=== PATIENT | male | born 1990 | race Caucasian/White ===

== ENCOUNTER → 2022-12-27 09:20 | Outpatient (CLI) | payer OTHER, SELFPAY | PROVIDERS: PCP Physician Assistant; Visit Provider Physician Assistant | DX: Z76.89 Persons encountering health services in other specified circumstances (principal) ==

== ENCOUNTER → 2023-01-08 11:52 | Outpatient (CLI) | payer OTHER, SELFPAY ==
[2022-12-27 15:11] LABS: Amphetamine/Metha Screen,Urine Negative ng/ml (<1000)
[2022-12-27 15:12] LABS: Barbiturates Screen,Urine Negative ng/ml (<200)
[2022-12-27 15:13] LABS: Benzodiazepines Screen,Urine Negative ng/ml (<200); Cannabinoid Screen,Urine Positive ng/ml (<50)
[2022-12-27 15:23] LABS: Cocaine Screen,Urine Negative ng/ml (<300)
[2022-12-27 15:24] LABS: Methadone Screen,Urine Negative ng/ml (<300)
[2022-12-27 15:25] LABS: Opiate Screen,Urine Negative ng/ml (<300); Phencyclidine Screen,Urine Negative ng/ml (<25)
== END ==
LOC: LAB.DROPOF 11:53
PROVIDERS: PCP Physician Assistant; Visit Provider Physician Assistant
DX: F90.9 Attention-deficit hyperactivity disorder, unspecified type (principal); R45.4 Irritability and anger; Z76.89 Persons encountering health services in other specified circumstances
CPT/HCPCS: 80305

== ENCOUNTER → 2023-08-19 15:25 | Outpatient (CLI) | payer SELFPAY ==
[2023-08-19 17:07] LABS: Barbiturates Screen,Urine Negative ng/ml (<200)
[2023-08-19 17:08] LABS: Benzodiazepines Screen,Urine Negative ng/ml (<200)
[2023-08-19 17:09] LABS: Cannabinoid Screen,Urine Positive ng/ml (<50); Cocaine Screen,Urine Negative ng/ml (<300)
[2023-08-19 17:10] LABS: Methadone Screen,Urine Negative ng/ml (<300); Opiate Screen,Urine Negative ng/ml (<300)
[2023-08-19 17:11] LABS: Phencyclidine Screen,Urine Negative ng/ml (<25)
[2023-08-19 17:21] LABS: Amphetamine/Metha Screen,Urine Positive ng/ml (<1000)
== END ==
PROVIDERS: PCP Physician Assistant; Visit Provider Physician Assistant
DX: F90.9 Attention-deficit hyperactivity disorder, unspecified type (principal); Z79.899 Other long term (current) drug therapy
CPT/HCPCS: 80305

== ENCOUNTER 2025-03-31 13:04 | Emergency (ER) | payer OTHER, SELFPAY ==
[2025-03-31 13:10] VITALS: BP 141/95; PULSE 119; RESP 20; TEMP 37.2; O2SAT 99; BMI 23.6
--- NOTE | 2025-03-31 13:10 | ED_ITS ---
<Statement entered by Zuly Solano DO - 03/31/25 17:01> I was consulted by the JARRETT, and we discussed the complexity of problems being addressed. I approve the treatment and management plan for this patient's care in the emergency department, thus performing a substantial portion of the medical decision making. Zuly Solano DO Discharge Plan Disposition Patient Disposition: Home, Self-Care Condition: Good Prescriptions Prescriptions: No Action citalopram 20 mg tablet 20 mg PO DAILY 90 Days Qty: 90 0RF methylphenidate HCl 20 mg tablet 20 mg PO BID Qty: 60 0RF Rx Instructions: Take at least 4-6 hours apart but also 4-6 hours before bedtime Referrals Follow up/Referrals: Provider,Referral, MD [Primary Care Provider, Medical] - See instructions Activity Restrictions/Add. Instructions Additional Instructions/Restrictions: Please follow-up with your primary care doctor or orthopedic doctor in the upcoming days/weeks, please utilize ibuprofen and Tylenol as needed for symptomatic relief, please return to the emergency department with any worsening signs or symptoms, would benefit from MRI of your shoulder to assess for any rotator cuff issues. 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 Patient denies any fever chills chest pain shortness of breath nausea vomiting constipation diarrhea, no neck pain, no midthoracic back pain, no lower back pain, no urinary bladder or bowel dysfunction, no upper or lower extremity weakness or numbness or tingling, no radicular type symptomatology, no diarrhea no constipation. 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 Initial triage vitals are grossly unremarkable. Onset (ago): week(s) Related Data Previous Rx's ?Medication ?Instructions ?Recorded citalopram 20 mg tablet 20 mg PO DAILY 90 days #90 t abs 12/27/22 methylphenidate HCl 20 mg tablet 20 mg PO BID #60 tabs 08/21/23 Allergies Allergy/AdvReac Type Severity Reaction Status Date / Time No Known Allergies Allergy Verified 08/19/23 10:03 [facility] Disclaimer: The information contained in this section may have been updated after the patient was seen, as this information can be updated by other users. Medical History Anxiety Difficulty controlling anger Excessive anger Social History Smoking Status: Current every day smoker tobacco type: cigarettes alcohol intake: current alcohol intake frequency: holidays/special occasions only substance use type: marijuana current occupational status: employed Travel in the last 8 weeks?: None Have you lived/traveled outside [place] in past 30 days?: No Contact w/someone who lives/traveled outside [place] past 30 days?: No Exposure to someone with infectious disease in past 14 days?: No Do you have a fever (greater than 100.4 F or 38 C)?: No Have you tested positive for COVID-19?: No Exposed to someone with COVID-19 in past 14 days?: No Do you have a sore throat?: No Do you have a cough?: No Do you have any weakness?: No Do you have any diarrhea?: No Are you experiencing any unusual bleeding?: No Do you have any muscle aches/pain?: No Do you have any abdominal pain?: No Are you experiencing loss of taste or smell?: No Other Medical History Have you received the Pneumonia Vaccine: No ROS Obtained: Yes All systems reviewed & no additional complaints except as documented Physical Exam General General appearance: alert and in no apparent distress Head Head exam: atraumatic and normocephalic Eye Eye exam: Present PERRL and EOMI ENT ENT exam: Present mucous membranes moist Neck Neck exam: Present normal inspection Chest Chest inspection: Present normal inspection and symmetric chest wall rise Respiratory Respiratory exam: Present normal lung sounds bilaterally; Absent respiratory distress Cardiovascular Cardiovascular exam: Present regular rate and normal rhythm Abdominal Exam Abdominal exam: Present soft; Absent tenderness Extremities Exam Extremities exam: Present normal inspection, tenderness and other (Patient is otherwise neurovasc intact, some pain limited range of motion in the shoulder joint, patient has difficulty with abduction abduction, internal and external rotation, and has a positive empty can sign.); Absent full ROM or joint swelling Neurological Exam Neurological exam: Present alert and oriented X3 Psychiatric Psychiatric exam: Present normal affect Skin Skin exam: Present warm and dry Medical Decision Making Medical Records Medical records reviewed: Yes I reviewed the patient's medical records. Screening: Per USPSTF and CDC recommendations, given the prevalence of disease in our [facility], it is our hospital?s policy to screen for HIV and viral Hepatitis for all patients aged 18 and over and those with ongoing risk factors. Omar Inquiry Pt receiving controlled substance: No Omar was queried for this patient: No Vital Signs: 03/31/25 13:10 Temperature 99.0 F Temperature Source Oral Pulse Rate [Left Radial] 119 H Respiratory Rate 20 Blood Pressure [Right Arm] 141/95 H Blood Pressure Mean [Right Arm] 110 02 Sat by Pulse Oximetry 99 Oxygen Delivery Method Room Air Lab Data Lab results reviewed: Yes I reviewed the patient's lab results. Orders (Tests/Meds): ED MEDICATIONS Discontinued Medications Generic Name Dose Route Start Last Admin Trade Name Hien PRN Reason Stop Dose Admin Acetaminophen 500 mg 03/31/25 13:19 03/31/25 13:27 Acetaminophen 500mg Tab PO 03/31/25 13:20 500 mg ONCE ONE Administration Ibuprofen 600 mg 03/31/25 13:18 03/31/25 13:27 Ibuprofen 600 Mg Tablet PO 03/31/25 13:19 600 mg ONCE ONE Administration ORDERS Category Date Time Status XR shoulder LT min 2V Stat Exams 03/31/25 13:18 Completed Medical Decision Narrative: 35-year-old male presents the emergency department with left shoulder pain, for 2 weeks, differential diagnosis include but not limited to, rotator cuff tendinopathy, anterior shoulder dislocation, shoulder fracture, acute shoulder impingement syndrome, bursitis, AC joint dysfunction among others. Obtain x-ray of the left shoulder, and give 500 mg p.o. Tylenol and 600 milligram p.o. ibuprofen for pain I reviewed the patient's left shoulder x-ray along with the corresponding radiological report, unremarkable exam. I recommend follow-up with orthopedic doctor, recommend rest ice ibuprofen Tylenol as needed for symptomatically, you would benefit from possible MRI of the shoulder to assess for any rotator cuff injury, patient voiced understanding and agreement with current treatment plan/discharge plan. Patient will follow- up with providers as directed, patient was given strict ED return precautions. Critical Care Critical Care Time Critical Care Time: No
--- NOTE | 2025-03-31 13:18 | XR_ITS ---
FINAL REPORT CLINICAL HISTORY: Left shoulder pain after injury 2 weeks ago, pt states he heard a pop in his shoulder during initial injury FINDINGS: Three views show no evidence of acute displaced fracture or dislocation of the visualized bony architecture. The joint spaces appear normal. IMPRESSION: Unremarkable exam. Reviewed, Interpreted and Dictated by Nick Stewart MD Transcribed by Vidhi Leigh Authenticated and . [facility]
[2025-03-31] MEDS: ACETAMINOPHEN 500MG TAB 500 MG PO (13:27)
[2025-03-31] MEDS: IBUPROFEN 600 MG TABLET PO (13:27)
[2025-03-31 14:26] VITALS: BP 140/78; PULSE 90; RESP 20; TEMP 36.8; O2SAT 98
== END 2025-03-31 14:28 | disposition home or self-care (01) ==
PROVIDERS: Emergency Provider Student in an Organized Health Care Education/Training Program
DX: M25.512 Pain in left shoulder (principal); F17.210 Nicotine dependence, cigarettes, uncomplicated
CPT/HCPCS: 73030; 99283